=== PATIENT | female | born 1980 | race Two or more races ===

== ENCOUNTER → 2021-09-03 | Outpatient (CLI) | payer OTHER ==
[2021-09-03 13:41] LABS: BASO % 0.4 % (0.0-1.0); EOS # 0.1 10^3/uL (0.0-0.5); EOS % 1.4 % (0.0-3.0); HEMATOCRIT 32.2 % (36.0-47.0); HEMOGLOBIN 11.1 g/dl (12.0-15.5); LYMPH % 12.1 % (24.0-44.0); MEAN CORPUSCULAR HEMOGLOBIN 33.9 pg (27.0-33.0); MEAN CORPUSCULAR HGB CONC 34.5 g/dl (32.0-36.5); MEAN CORPUSCULAR VOLUME 98.5 fl (80.0-96.0); MONO # 0.3 10^3/uL (0.0-0.8); MONO % 3.7 % (2.0-8.0); NEUTROPHILS # 6.9 10^3/uL (1.5-8.5); NEUTROPHILS % 81.7 % (36.0-66.0); PLATELET COUNT, AUTOMATED 169 10^3/uL (150-450); RED BLOOD COUNT 3.27 10^6/uL (4.00-5.40); WHITE BLOOD COUNT 8.5 10^3/uL (4.0-10.0)
[2021-09-03 15:06] LABS: GC DNA AMPLIFICATION NEGATIVE (NEGATIVE)
[2021-09-03 16:34] LABS: GLUCOSE CHALLENGE TEST 1 HOUR 176 MG/DL (LESS THAN 140)
[2021-09-04 01:08] LABS: HEPATITIS C VIRUS ABY INDEX 0.1 INDEX (<0.8)
[2021-09-04 01:09] LABS: HIV 1&2 SCREEN CENTAUR NEGATIVE (NEGATIVE)
== END ==
LOC: M PLALAB 10:46
PROVIDERS: ATTEND Advanced Practice Midwife
DX: Z33.1 Pregnant state, incidental (principal)

== ENCOUNTER → 2021-09-06 | Outpatient (CLI) | payer OTHER | LOC: M LAB 08:15 | PROVIDERS: ATTEND Advanced Practice Midwife | DX: O99.810 Abnormal glucose complicating pregnancy (principal) ==

== ENCOUNTER 2021-09-28 12:04 | Outpatient (CLI) | payer OTHER ==
[~2021-09-28] VITALS: Ht 167.6 cm; Wt 98.4 kg
[2021-09-28 12:21] VITALS: BP 131/77
[2021-09-28] MEDS ORDERED: COLA100C5 PO (12:25)
[2021-09-28] MEDS ORDERED: MULTTAB20 PO (12:25)
[2021-09-28] MEDS ORDERED: LOVE1INJ2 SC (12:25)
[2021-09-28] MEDS ORDERED: ACET-716 PO (12:37)
[2021-09-28] MEDS ORDERED: LOVE1INJ SC (12:37)
[2021-09-28] MEDS ORDERED: HOME MED LIST COMPLETE! XX SCH (12:40)
== END 2021-09-28 14:01 | disposition home or self-care (01) ==
LOC: M LDO 12:04 → M LDI 13:47 → M LDO 14:01 → M LDI 14:01 → EDSTATUS 10-01 14:31
PROVIDERS: ATTEND Obstetrics & Gynecology
DX: O26.853 Spotting complicating pregnancy, third trimester (principal); O44.03 Complete placenta previa NOS or without hemorrhage, third trimester; O71.7 Obstetric hematoma of pelvis; O09.513 Supervision of elderly primigravida, third trimester; Z3A.28 28 weeks gestation of pregnancy

== ENCOUNTER → 2021-10-07 | Outpatient (CLI) | payer OTHER ==
[~2021-10-07] MED LIST: ACET-716 PO; COLA100C5 PO; LOVE1INJ SC; LOVE1INJ2 SC; MULTTAB20 PO
== END ==
LOC: M WHC 09:16
PROVIDERS: ATTEND Advanced Practice Midwife
DX: O44.02 Complete placenta previa NOS or without hemorrhage, second trimester (principal); Z3A.29 29 weeks gestation of pregnancy

== ENCOUNTER → 2021-11-01 | Outpatient (CLI) | payer OTHER | LOC: M WHC 09:20 | PROVIDERS: ATTEND Advanced Practice Midwife | DX: O44.02 Complete placenta previa NOS or without hemorrhage, second trimester (principal); Z3A.34 34 weeks gestation of pregnancy ==

== ENCOUNTER → 2022-03-03 | Outpatient (REF) ==
[~2022-03-03] MED LIST changes: +HEPA500011 SUBQ
== END ==
LOC: M LAB LCGH 10:46
PROVIDERS: ATTEND Obstetrics & Gynecology
DX: Z79.899 Other long term (current) drug therapy (principal)